=== PATIENT | female | born 1985 | race Caucasian/White ===

== ENCOUNTER → 2017-10-09 13:08 | Outpatient (REF) | payer OTHER, MEDICAID, SELFPAY | LOC: LAB 13:08 | PROVIDERS: Family Provider Family Medicine; PCP Family Medicine; Visit Provider Family Medicine | DX: Z34.00 Encounter for supervision of normal first pregnancy, unspecified trimester (principal) | CPT/HCPCS: 87081; 87147 ==

== ENCOUNTER 2017-10-30 08:12 | Outpatient (CLI) | payer OTHER, MEDICAID, SELFPAY | END 2017-10-30 08:50 | disposition home or self-care (01) | LOC: OB 10-31 06:50 → LABOR 10-31 06:50 | PROVIDERS: Family Provider Family Medicine; PCP Family Medicine; Visit Provider Family Medicine | DX: Z03.71 Encounter for suspected problem with amniotic cavity and membrane ruled out (principal); Z3A.39 39 weeks gestation of pregnancy | CPT/HCPCS: 59025; 84112; G0378; G0379 ==

== ENCOUNTER 2017-11-03 11:18 | Inpatient (IN) | payer OTHER, MEDICAID, SELFPAY ==
[2017-11-03] VITALS (7 sets, daily range): BP systolic 99–120; BP diastolic 54–79; PULSE 98–117; RESP 14–22; TEMP 36.1; O2SAT 100
[2017-11-03] MEDS: LACTATED RINGERS 1,000 ML 100 ML IV ×3 (13:15→16:58)
[2017-11-03 13:22] LABS: Add Manual Diff / Slide Review NO; Basophils Percent Auto 0.8 % (0-2); Eosinophils Percent Auto 1.3 % (2-4); Hematocrit 32.3 % (36-46); Hemoglobin 10.8 g/dL (12.0-16.0); Lymphocytes Percent Auto 23.3 % (25-40); Mean Corpuscular HGB Conc 33.3 % (30-36); Mean Corpuscular Hemoglobin 27.9 PG (26-34); Mean Corpuscular Volume 83.7 fL (80-100); Monocytes Percent Auto 7.5 % (3-14); Neutrophils Absolute Auto 7700 /uL (3000-5900); Neutrophils Percent Auto 67.1 % (50-75); Platelet Count 252 X10^3/uL (150-400); Red Blood Cell Count 3.86 X10^6/uL (4.0-5.2); Red Cell Distribution Width 14.7 % (11.6-14.8); White Blood Cell Count 11.5 X10^3/uL (4.5-11.0)
--- NOTE | 2017-11-03 16:31 | PM.OBPNLAB ---
Date/Time Date Patient Seen: 11/03/17 Time Patient Seen: 16:31 Pain Control Pain control: epidural Pelvic Exam Dilation (cm): 9 Effacement (%): 90 station: -2 Amniotic membrane status: Ruptured Contractions Contraction frequency (min): 3 Status status: Category l Monitor Accelerations: Present Assessment and Plan Assessment: active labor Comments: patient with low heart rate attempted delivery but not able. rotation and heart rate up. will rest and fluid and oxygen. reevaluate. follow up few minutes. ob and team called.
--- NOTE | 2017-11-03 16:56 | PM.OBHP.1 ---
OB HPI Date/Time Date of admission: 11/03/17 Date Patient Seen: 11/03/17 Time Patient Seen: 16:58 History of Present Illness Chief complaint: OBSERVATION : 2 Para: 1 Estimated Date of Delivery: 11/05/17 Estimated Gestational Age (weeks): 39 5/7 Narrative: Angie Ayala is a 32 year old female 39 and 5 7 weeks by good dates presents with contractions starting about 830 this morning. Increased in intensity until she came to here. She was 4 cm at that time. Non ruptured. GBS was negative. Baby looked good. Was admitted. Epidural was ordered. labs 1 hr glucose was normal. She has a positive antibody screen negative. All other labs were normal. She had sequential screen done which was normal. Had her tetanus in her flu. Past . 11/06/11 39 weeks 36 hr of labor epidural 7 lb 2 oz female Past medical history is unremarkable. went well with no complications. She had no problems. Growth has been normal. Feeling well. Evaluation Evaluation Laboratory results: Laboratory Tests 11/03/17 11/03/17 12:50 12:50 WBC 11.5 H RBC 3.86 L Hgb 10.8 L Hct 32.3 L MCV 83.7 MCH 27.9 MCHC 33.3 RDW 14.7 Plt Count 252 Neut % (Auto) 67.1 Lymph % (Auto) 23.3 L Guadalupe % (Auto) 7.5 Eos % (Auto) 1.3 L Baso % (Auto) 0.8 Neut # (Auto) 7700 H Blood Type A Positive Antibody Screen Negative Exam Narrative Exam Narrative: Alert female no acute distress lungs are clear heart regular rate and rhythm abdomen is gravid nontender small amount of bleeding. Extremities are unremarkable vaginal exam was 8 cm at my 1st presentation. 80% ruptured. Objective Labs Result Diagrams: 11/03/17 12:50 Labs: Laboratory Results - last 24 hr 11/03/17 11/03/17 12:50 12:50 WBC 11.5 H RBC 3.86 L Hgb 10.8 L Hct 32.3 L MCV 83.7 MCH 27.9 MCHC 33.3 RDW 14.7 Plt Count 252 Neut % (Auto) 67.1 Lymph % (Auto) 23.3 L Guadalupe % (Auto) 7.5 Eos % (Auto) 1.3 L Baso % (Auto) 0.8 Neut # (Auto) 7700 H Blood Type A Positive Antibody Screen Negative Assessment and Plan Plan: Plan: Admit prepare for vaginal delivery.
--- NOTE | 2017-11-03 18:22 | SUR.OPER ---
Lithotomy on padded OR bed, head on pillow, arms secured on padded arm boards at <90 degrees abduction. Legs secured in padded yellow fins stirrups.
--- NOTE | 2017-11-03 18:39 | PM.OP.1 ---
Operative Date/Time/Diagnoses - Date of procedure: 11/03/17 Time of procedure: 18:39 Pre-op diagnosis: 39 5/7 week intrauterine distress Post-op diagnosis: same Procedure & Clinicians Same procedure as scheduled: Yes Indications: Patient presented and did well up until 9 cm when she developed severe bradycardia into the 60s and 70s for 5-6 minutes. Attempted to get her to push through 9+ cm cervix was then able to do so. Attempted vacuum application without success. Baby's heart rate returned we let her rest and attempted delivery again with similar discolorations into the 60s. Attempted vacuum extraction again without success and proceeded to section Surgeon: Srinivas Collazo Compliance Technician: Maggie Fernández Anesthesia Type: Epidural Operative Notes Findings: Viable female weighing 7 lb 1.6 oz Apgars 8 and 9. Mother and infant in stable condition. Normal pelvic organs. Uterine artery bleed on the left side which was controlled otherwise unremarkable organs Closure Type: primary Implants & Drains: None Applied: catheter Estimated Blood Loss (mL): 550 Blood products transfused: none Procedure in detail: Patient had epidural done by Dr. Singleton. Excellent result. Emergent was discussed with patient and . Consent was signed. Scopes procedure was followed. Patient was taken to the operative theater and placed on the wedged position supine. Prepped and draped in the usual manner. Excellent anesthesia. Pfannenstiel incision was then made down to the muscle layer. Blunt dissection was done of the subcutaneous tissue. Sharp dissection under direct visualization of the fascia both sides. Elevated with blunt dissection and Marlyn so. This was repeated inferiorly without complications. Easily muscle layer was and peritoneum was entered without complications. Blunt dissection bladder blade was placed. Bladder flap was then elevated and incised bilaterally. Blunt dissection used to developed. Bladder blade was placed and the bladder flap. A transverse incision was then made on the uterus in the low area. Clear fluid was noted. Bluntly extended. Hand was placed and head was easily deliver. Child was crying. Cord was clamped. Since handed off to weighted laundry housekeeping aide. Cord pH was obtained. Cord blood was obtained. Placenta was delivered manually. Wet lap sponge was used to swipe the uterine contents free of products of conception x2. Uterine incision on the grass at both corners and inferior aspect. Was closed with running 0 chromic. Uterine incision was re-evaluated and about a [address] over just inferior to the incision was a bleeder which was tied with [id number]. At this point a 2nd L in the uterine artery was noted. Two [id number] 0 chromic sutures were used to close with excellent results. Number gating suture was then used without complications 0 chromic. Running. Right corner had a bleeder with [id number]-wcnys 0 chromic used to close. Irrigation was done. No bleeding was noted. Running 3 0 Vicryl was used to close the bladder flap. Peritoneum was then closed with running 2 0 Vicryl. One stool interrupted suture was used to approximate the muscle layer. Running 1 Vicryl was used to close fascia in the usual manner. Irrigation was done the scab cutaneous tissue. 330 Vicryl interrupted sutures were used to approximate the wound edge in close space. Running 4 0 Vicryl subcuticular to close wound. Steri-Strips and dressing were applied. EBL 550 cc. Mother and infant were in stable condition. Transferred to recovery. Condition: stable Disposition: Acute Care Plan for aftercare: Patient will be transferred to recovery and then to Labor and delivery for usual care.
--- NOTE | 2017-11-03 18:39 | SUR.OPER ---
heart tones 145, time 1741, 7lbs, 1 oz.
[2017-11-03] MEDS: MORPHINE 10 MG/ML INJ 2 MG IV ×2 (18:40→18:45)
--- NOTE | 2017-11-03 18:48 | P.OP_ITS ---
Operative Date/Time/Diagnoses - Date of procedure: 11/03/17 Time of procedure: 18:39 Pre-op diagnosis: 39 5/7 week intrauterine distress Post-op diagnosis: same Procedure & Clinicians Same procedure as scheduled: Yes Indications: Patient presented and did well up until 9 cm when she developed severe bradycardia into the 60s and 70s for 5-6 minutes. Attempted to get her to push through 9+ cm cervix was then able to do so. Attempted vacuum application without success. Baby's heart rate returned we let her rest and attempted delivery again with similar discolorations into the 60s. Attempted vacuum extraction again without success and proceeded to section Surgeon: Srinivas Collazo Unit Nurse: Maggie Fernández Anesthesia Type: Epidural Operative Notes Findings: Viable female weighing 7 lb 1.6 oz Apgars 8 and 9. Mother and infant in stable condition. Normal pelvic organs. Uterine artery bleed on the left side which was controlled otherwise unremarkable organs Closure Type: primary Implants & Drains: None Applied: catheter Estimated Blood Loss (mL): 550 Blood products transfused: none Procedure in detail: Patient had epidural done by Dr. Singleton. Excellent result. Emergent was discussed with patient and . Consent was signed. Scopes procedure was followed. Patient was taken to the operative theater and placed on the wedged position supine. Prepped and draped in the usual manner. Excellent anesthesia. Pfannenstiel incision was then made down to the muscle layer. Blunt dissection was done of the subcutaneous tissue. Sharp dissection under direct visualization of the fascia both sides. Elevated with blunt dissection and Marlyn so. This was repeated inferiorly without complications. Easily muscle layer was and peritoneum was entered without complications. Blunt dissection bladder blade was placed. Bladder flap was then elevated and incised bilaterally. Blunt dissection used to developed. Bladder blade was placed and the bladder flap. A transverse incision was then made on the uterus in the low area. Clear fluid was noted. Bluntly extended. Hand was placed and head was easily deliver. Child was crying. Cord was clamped. Since handed off to weighted turbine blade assembler. Cord pH was obtained. Cord blood was obtained. Placenta was delivered manually. Wet lap sponge was used to swipe the uterine contents free of products of conception x2. Uterine incision on the grass at both corners and inferior aspect. Was closed with running 0 chromic. Uterine incision was re-evaluated and about a [address] over just inferior to the incision was a bleeder which was tied with [id number]. At this point a 2nd L in the uterine artery was noted. Two ccyjns-bz-dxvay 0 chromic sutures were used to close with excellent results. Number gating suture was then used without complications 0 chromic. Running. Right corner had a bleeder with [id number] 0 chromic used to close. Irrigation was done. No bleeding was noted. Running 3 0 Vicryl was used to close the bladder flap. Peritoneum was then closed with running 2 0 Vicryl. One stool interrupted suture was used to approximate the muscle layer. Running 1 Vicryl was used to close fascia in the usual manner. Irrigation was done the scab cutaneous tissue. 330 Vicryl interrupted sutures were used to approximate the wound edge in close space. Running 4 0 Vicryl subcuticular to close wound. Steri-Strips and dressing were applied. EBL 550 cc. Mother and infant were in stable condition. Transferred to recovery. Condition: stable Disposition: Acute Care Plan for aftercare: Patient will be transferred to recovery and then to Labor and delivery for usual care.
--- NOTE | 2017-11-03 18:53 | PM.OBPNLAB ---
Date/Time Date Patient Seen: 11/03/17 Time Patient Seen: 18:53 Pain Control Comments: Patient tolerating medicine well off the dural has worked well. No complaints Pelvic Exam Dilation (cm): 9 Effacement (%): 90 station: -2 Amniotic membrane status: Ruptured Contractions Contraction frequency (min): 3 Status status: Category l Assessment and Plan Comments: Patient is now doing better heart tone seems to be improved. We have had 2 episodes now of heart rates in the 60s. Initial episode applied increased fluids oxygen and attempted pushing through a 9+ cm cervix. No real improvement. Tried several different positions until left lateral positions seem to help. Contacted Dr. Fernández and Dr. Banuelos who were gracious enough to come. Operative crew was called. Continued with oxygen. Baby seemed to recover. Seemed to be doing better with contractions. Waited approximately 15 20 min her cervix now is just a right-sided rim of cervix. Attempted pushing no real improvement VAC was applied with no success and emergent section was called out heart rate dropped into the 60s again and stayed there and so we transferred from to right and then left side. Seemed to be in excellent position. Baby's heart rate was stable then through the rest of the delivery. Discussed with both mom and dad. They understand why were doing this with going on. Dr. Fernández agrees. Will be transferred to operative delivery.
[2017-11-03] MEDS: DEXTROSE 5%-NS W/KCL 20MEQ 1,000 ML 125 MEQ IV (20:30)
[2017-11-04] MEDS: OXYCODONE/ACETAMINOPHEN 5/325 TABLET 2 TAB PO ×5 (04:28→21:01)
[2017-11-04] MEDS: LACTATED RINGERS 1,000 ML 100 ML IV (04:30)
--- NOTE | 2017-11-04 07:50 | PM.OBPN.1 ---
Subjective - OB Interval history: Patient actually feeling well. Did take a pain pill till this morning at 4. Minimal bleeding. is going well. Feeling like she wants to get up and try moving around. No other changes. baby status: doing well [place] feeding status: exclusively breast feeding Date Patient Seen: 11/04/17 Time Patient Seen: 07:51 Exam Vital Signs (past 8 hours): Oxygen Delivery Method Room Air Narrative Exam Narrative: Alert female no acute distress. Lungs are clear. Heart regular rate and rhythm. Abdomen is soft positive bowel sounds. Incision is clean and dry. Uterus is firm minimal to moderate tenderness. Extremities are normal. Objective Labs Result Diagrams: 11/03/17 12:50 Labs: Laboratory Results - last 24 hr 11/03/17 11/03/17 12:50 12:50 WBC 11.5 H RBC 3.86 L Hgb 10.8 L Hct 32.3 L MCV 83.7 MCH 27.9 MCHC 33.3 RDW 14.7 Plt Count 252 Neut % (Auto) 67.1 Lymph % (Auto) 23.3 L Person % (Auto) 7.5 Eos % (Auto) 1.3 L Baso % (Auto) 0.8 Neut # (Auto) 7700 H Blood Type A Positive Antibody Screen Negative Assessment & Plan Plan Comments: Status post day 1 doing well. Minimal bleeding. Awaiting H&H. Did have moderate bleeding during procedure. May need iron. Otherwise routine care. Follow up a.m.. Possible discharge tomorrow. Time Spent With Patient Total time spent is greater than 50% in coordination of care (as documented) at patient's floor/unit and/or counseling patient: less than 15 minutes
[2017-11-04] MEDS: IBUPROFEN 600 MG TABLET PO ×2 (10:47→17:23)
[2017-11-04 11:52] LABS: Basophils Percent Auto 0.4 % (0-2); Eosinophils Percent Auto 0.3 % (2-4); Hematocrit 24.1 % (36-46); Hemoglobin 7.9 g/dL (12.0-16.0); Lymphocytes Percent Auto 12.5 % (25-40); Mean Corpuscular HGB Conc 32.7 % (30-36); Mean Corpuscular Hemoglobin 27.6 PG (26-34); Mean Corpuscular Volume 84.4 fL (80-100); Monocytes Percent Auto 8.5 % (3-14); Neutrophils Absolute Auto 10100 /uL (3000-5900); Neutrophils Percent Auto 78.3 % (50-75); Platelet Count 207 X10^3/uL (150-400); Red Blood Cell Count 2.86 X10^6/uL (4.0-5.2); Red Cell Distribution Width 14.8 % (11.6-14.8); White Blood Cell Count 12.9 X10^3/uL (4.5-11.0)
[2017-11-04 11:55] LABS: Add Manual Diff / Slide Review NO
[2017-11-05] MEDS: IBUPROFEN 600 MG TABLET PO ×3 (00:12→17:07)
[2017-11-05] MEDS: LANOLIN OINT 7 GM 1 APPLIC TOP (00:14)
[2017-11-05] MEDS: OXYCODONE/ACETAMINOPHEN 5/325 TABLET 2 TAB PO ×4 (01:03→17:07)
--- NOTE | 2017-11-05 08:05 | P.DS_ITS ---
History of Present Illness Chief complaint: OBSERVATION Discharge Providers Date of admission: 11/03/17 11:18 Primary care physician: Srinivas Collazo MD Consults: 11/03/17 18:40 Consult to Asbestos Hazard Abatement Worker Routine Comment: Discharge provider: Srinivas Collazo MD Summary Discharge Diagnosis: 3957 week intrauterine . distress. Hospital Course: Patient was brought back from recovery. Did well. Actually was up and mobilizing on day 1. Hematocrit was 24 and iron was started. Pain was well controlled. Bleeding was minimal. Breast-feeding was going well. Was able to tolerate diet. Navarro was discontinued without complications. Patient was up on mobilizing on day 2 and was requesting to go home. Vital signs all remained stable. No other issues. Status at Discharge Cognitive/behavioral status at discharge: Stable Functional status at discharge: independent ambulation Overall status at discharge: patient is progressing back to baseline Exam Vital Signs (past 8 hours): Oxygen Delivery Method Room Air Narrative Exam Narrative: Alert feeling male smiling mildly fatigued no acute distress. Lungs are clear. Heart regular rate and rhythm. Uterus is firm. Nontender. Incision is clean and dry. Extremities without cyanosis clubbing edema. Calves are nontender. Objective Labs Result Diagrams: 11/04/17 08:50 Labs: Laboratory Results - last 24 hr 11/04/17 08:50 WBC 12.9 H RBC 2.86 L Hgb 7.9 L Hct 24.1 L MCV 84.4 MCH 27.6 MCHC 32.7 RDW 14.8 Plt Count 207 Neut % (Auto) 78.3 H Lymph % (Auto) 12.5 L Blaine % (Auto) 8.5 Eos % (Auto) 0.3 L Baso % (Auto) 0.4 Neut # (Auto) 45074 H Discharge Plan Discharge Plan Patient Disposition: Home, Self-Care Discharge comment: Patient was discharged home in stable condition. Usual education post . Patient understands. Questions answered. Follow up with me in 2 weeks. Discharge Med Rec/Prescriptions Prescriptions: New oxycodone-acetaminophen 5-325 mg Tablet 1 tab PO Q4H PRN (Reason: Pain, Moderate (4-6)) Qty: 42 RF: 0 ibuprofen 600 mg Tablet 600 mg PO Q6HR PRN (Reason: As Needed For Fever/Mild Pain) Qty: 90 RF: 1 ferrous gluconate 324 mg (38 mg iron) Tablet 324 mg PO BID Qty: 100 RF: 0 docusate sodium [Colace] 100 mg capsule 100 mg PO BID Qty: 60 RF: 1 Continue PNV #[id number] 30 mg iron-10 mg iron-1 mg Capsule 1 tab DAILY RF: 0 Discontinued zolpidem 5 mg tablet 5 mg PO PRN PRN (Reason: Insomnia) RF: 0 Follow up/Referrals: Srinivas Collazo MD [Primary Care Provider] - 11/19/17 12:00 am Provider Discharge Instructions Diet: Diet as Tolerated Activity: No lifting greater than 15 lb. No abdominal exercises. May increase activity as tolerated otherwise Wound Care Dressing: Keep dry. Other wound treatment: Keep dry do not worry about other treatment unless redness swelling or other changes Discharge Data Primary Care Provider: Srinivas Collazo Attending Provider: Srinivas Collazo Admit Date/Time: 11/03/17 11:18
[2017-11-05] MEDS: FERROUS GLUCONATE 324 MG TABLET PO (09:29)
[2017-11-05 15:46] VITALS: BP 120/62; PULSE 98; RESP 14; TEMP 36.1
== END 2017-11-05 17:00 | disposition home or self-care (01) | DRG 540 ==
PROVIDERS: Admitting Provider Family Medicine; Family Provider Family Medicine; PCP Family Medicine; Visit Provider Family Medicine
PROC: 10D00Z1 Extraction of Products of Conception, Low, Open Approach (ICD-10-PCS; CPT 59514; principal; 2017-11-03 18:15)
DX: O76 Abnormality in fetal heart rate and rhythm complicating labor and delivery (principal); Z3A.39 39 weeks gestation of pregnancy; Z37.0 Single live birth; O66.5 Attempted application of vacuum extractor and forceps
CPT/HCPCS: 01967; 36415; 59050; 59514; 85025; 86850; 86900; 86901; G0379; J2210; J2270; J2274; J2405; J2590

== ENCOUNTER → 2021-12-06 11:33 | Outpatient (CLI) | payer OTHER, MEDICAID, SELFPAY ==
--- NOTE | 2021-12-06 | DI.US.S_ITS ---
PROCEDURE: US OB LIMITED INDICATIONS: Size and Dating OUTSIDE/PRIOR DATING DATA: Last menstrual period (LMP): Unknown. LMP-based estimated date of delivery (JARETH): Not applicable. First dating scan (date and location): 12/06/2021. Estimated date of delivery (JARETH) from first dating scan: 05/05/2022. TECHNIQUE: Real-time scanning was performed of the fetus, with image documentation. Endovaginal scanning: No COMPARISON: None. FINDINGS: A single living intrauterine gestation is present. Presentation: Breech Placenta: Placental position is anterior, without previa. Amniotic fluid index: 14.3 cm, normal range is 5-24 cm. heart rate: 155 beats per minute. Maternal cervical canal: 4.8 cm long. Normal lower limit is 2.5 cm. Estimated gestational age from initial scan: 18 weeks 4 days biometrics: Biparietal diameter: 41 mm; 18 weeks 3 days Head circumference: 156 mm; 18 weeks 4 days Abdominal circumference: 133 mm; 18 weeks 5 days Femur length: 28 mm; 18 weeks 4 days Limited survey of anatomy includes normal stomach/abdomen, bilateral renal regions, and cord/cord insertion. Four-chamber heart view could not be obtained. IMPRESSION: 1. Single living intrauterine gestation. 2. Normal limited survey of anatomy. Dictated by: Albert Parisi M.D. on 12/06/2021 at 14:18 Transcribed by: KOLE on 12/06/2021 at 14:21 Approved by: Albert Parisi M.D. on 12/06/2021 at 16:49
== END ==
PROVIDERS: Family Provider Family Medicine; PCP Family Medicine; Referring Provider Family Medicine; Visit Provider Family Medicine
DX: Z36.87 Encounter for antenatal screening for uncertain dates (principal); Z3A.18 18 weeks gestation of pregnancy
CPT/HCPCS: 76815

== ENCOUNTER 2022-04-25 05:27 | Inpatient (IN) | payer OTHER, MEDICAID, SELFPAY ==
--- NOTE | 2022-04-25 05:57 | P.HPOB_ITS ---
OB HPI Date/Time Date of admission: 04/25/22 Date Patient Seen: 04/25/22 Time Patient Seen: 05:50 History of Present Condition Chief complaint: Labor : 3 Para: 2 Estimated Date of Delivery: 05/04/22 Estimated Gestational Age (weeks): 38.5 Narrative: Angie Ayala is a 36 year old female based on 18wk US. Presents for evaluation of labor with repeat scheduled in 2 days (04/27/22 @39wks). Noticed a small amount fo clear fluid leaking last night around 2200. Awoke this morning with contractions that have become increasingly more painful. Now breathing through strong contractions every 1-2 minutes. Late to care. Established care at 30 weeks with CNM and had consultation with for repeat . Partner, Dao, is present and supportive. Indications Operative indications ( section): previous uterine surgery History of Present care: good care, initiated at week # (18), number of visits (7) and pounds weight gain (7.5) Dating criteria: based on 2nd trimester US only Ultrasounds: normal mid trimester US Obstetrical complications: none Medical complications: none Preadmission Labs Blood type: A (+) positive -: Antibody screen: negative, GBS status: negative, HBsAG: negative, HIV: negative and RPR/VDLR: negative -: Chlamydia screen: not detected and Gonorrhea screen: not detected -: Rubella: immune and Varicella: immune HCT: 32 HCAB: negative 1 hr GTT: 118 Prior (ies) History: 11/06/2011: (vaginal delivery), Rachel, 39 wks 5days, 36 hr2 hr, Epidural, Intact, Female, [address], [facility] 11/03/2017: CS (), Katey, 40wks, Female, [address] [facility] Evaluation Evaluation Baseline heart rate: 130 Variability: Moderate (11-25) monitor accelerations: Present Monitor Decelerations: Absent Contraction Frequency (minutes): 1 Uterine Contraction Intensity: Strong/Firm Category of Tracing: Reactive Status: Category l Dilation (cm): 4 Effacement (%): 90 Dilation: 3-4 cm Effacement: >/=80% station: -2 Position of cervix: mid Consistency: soft Monte score: 9 PFSH Surgical History Hx of section Family History Mother Diabetes mellitus Father Hypertension Social History marital status: unmarried,living together (Fiance) number of children: 2 household members: significant other, children and other (split-level with fiance's parents upstairs) lives independently: Yes caregiver/support person: No housing: house occupational status: unemployed current occupational exposures/hazards: No Smoking Status: Never smoker alcohol intake: former substance use type: does not use Meds Home Medications and Allergies Home Medications Medication Instructions Recorded Confirmed Type ferrous sulfate 27 mg iron tablet 27 mg PO DAILY 04/25/22 04/25/22 History Allergies Allergy/AdvReac Type Severity Reaction Status Date / Time No Known Drug Allergies Allergy Verified 06/20/19 12:34 Review of Systems Review of Systems ROS: Yes All systems reviewed with the patient and are negative except as otherwise documented OB Exam Resp Effort & Inspection: normal respiratory effort and able to speak in complete sentences Auscultation: clear to auscultation bilaterally Cardio Rate: regular rate Rhythm: regular rhythm Presentation: vertex Assessment and Plan Assessment and Plan Assessment and Plan narrative: A: Term multipara Active labor Hx of (x1) Anemia Cat I FHR P: Admit, routine pre-op orders. Terbutaline now. May try NO2 for pain while awaiting anesthesia. now. KIERANM notified RN and .
[2022-04-25] MEDS: TERBUTALINE 1 MG/ML VIAL SUBCUT (06:17)
[2022-04-25 06:18] LABS: Add Manual Diff / Slide Review NO; Basophils Absolute Auto 0 /uL (0-100); Basophils Percent Auto 0.2 % (0-2); Eosinophils Absolute Auto 200 /uL (0-450); Eosinophils Percent Auto 1.7 % (2-4); Hematocrit 34.3 % (36-46); Hemoglobin 11.4 g/dL (12.0-16.0); Lymphocytes Absolute Auto 2700 /uL (1100-4500); Lymphocytes Percent Auto 27.7 % (25-40); Mean Corpuscular HGB Conc 33.1 % (30-36); Mean Corpuscular Hemoglobin 27.7 PG (26-34); Mean Corpuscular Volume 83.6 fL (80-100); Monocytes Absolute Auto 800 /uL (0-900); Monocytes Percent Auto 8.2 % (3-14); Neutrophils Absolute Auto 6100 /uL (1500-7000); Neutrophils Percent Auto 62.2 % (50-75); Platelet Count 245 X10^3/uL (150-400); White Blood Cell Count 9.8 X10^3/uL (4.5-11.0)
[2022-04-25] MEDS: CITRIC ACID/SODIUM CITRATE 15 ML SOLUTION 30 ML PO (06:24)
[2022-04-25] MEDS: CEFAZOLIN 2 GM/100 ML PREMIX 100 ML IV (06:28)
[2022-04-25 06:43] LABS: COVID19 -Nasal RAPID Negative (Negative)
--- NOTE | 2022-04-25 06:47 | SUR.OPER ---
Supine on Padded OR bed, head on pillow, safety belt at thigh, arms secured on padded arm boards at <90 degrees abduction. Bump under right buttock. Legs uncrossed with pillow under knees, gel pad to heels, tape over blanket to lower legs.
--- NOTE | 2022-04-25 07:02 | SUR.OPER ---
FHT prior to incision 125, viable baby boy at 0651, placenta delivered at 0654, 9/9, cord blood and placenta given to OB GIRISH Haro
[2022-04-25] MEDS: LACTATED RINGERS 1,000 ML 100 ML IV (07:10)
--- NOTE | 2022-04-25 07:47 | PM.PROC.1 ---
Procedures Date/Time Date of procedure: 04/25/22 Time of procedure: 06:51 General Procedure description: Information Assistant Documentation I assisted the OB digital production artist in the section for this patient. My responsibilities included retracting and suctioning, providing fundal pressure during delivery and following with suture during closure. Please see the OB's note for details of the surgery.
[2022-04-25 07:54] VITALS: BP 155/55; PULSE 58; RESP 14; O2SAT 98
[2022-04-25 07:56] VITALS: BP 139/91; PULSE 55; RESP 16; TEMP 36.5; O2SAT 99
--- NOTE | 2022-04-25 07:56 | PM.PREOP ---
Pre-operative Note COVID-19 COVID-19 status: Negative Interval Note History & Physical reviewed/Exam performed by Physician: Yes Changes to H&P: No
--- NOTE | 2022-04-25 07:56 | PM.OBCS.1 ---
Operative Date/Time/Diagnoses Date of procedure: 04/25/22 Time of procedure: 06:40 Pre-op diagnosis: 38w5d gestation GBS negative Rh positive Hx of prior Post-op diagnosis: same Procedure & Clinicians Procedure: Repeat Same procedure as scheduled: Yes Indications: Hx of prior Active labor Surgeon: Sapphire Portillo Click Yes if Unassisted: No Regional Safety Manager: Ariadna Gutierrez Anesthesia Type: Spinal Operative Notes Findings: Normal uterus, ovaries, and tube Closure Type: primary Specimen(s): cord blood Intraoperative meds administered: Duramorph, Ketorolac and Pitocin Applied: Catheter Estimated Blood Loss (mL): 650 Blood products transfused: none Procedure in detail: OPERATIVE COURSE: The patient was taken to the operating room where spinal anesthesia was placed. She was then prepared and draped in the normal sterile fashion in the dorsal supine position with a leftward tilt. Anesthesia was tested and found to be adequate. A Pfannensteil skin incision was then made with the scalpel and carried through to the underlying layer of fascia with the scalpel. The fascia was incised in the midline and the incision extended laterally with the Fenton scissors. The superior aspect of the fascial incision was then grasped with Elvia clamps, elevated with the help of the automobile mechanic assistant, and the underlying rectus muscles dissected off bluntly and sharply where needed. Attention was then turned to the inferior aspect of the incision which, in a similar fashion, was grasped, tented up with Elvia clamps, and the rectus muscle dissected off bluntly. The rectus muscles were then in the midline, and the peritoneum was identified and entered bluntly. The peritoneal incision was then extended with good visualization of the bladder. Retraction was provided by the automobile mechanic assistant. The bladder blade was then inserted and the vesicouterine peritoneum identified, grasped with pick-ups and entered sharply with the Metzenbaum scissors. The incision was then extended laterally and the bladder flap created digitally. The bladder blade was then reinserted and the lower uterine segment incised in a transverse fashion with the scalpel, with the automobile mechanic assistant providing suction. The uterine incision was then extended superolaterally by pulling superolaterally on both sides. Membranes were ruptured and fluid was clear. The bladder blade was removed the infant's head was flexed out of OA position and delivered atraumatically, with fundal pressure by the automobile mechanic assistant. The nose and mouth were suctioned with bulb suction and the cord was clamped and cut after 1 minute. The was handed off to the waiting nursing staff. Cord blood was collected for Rh status. The placenta was then delivered with gentle cord traction. The uterus was then exteriorized and cleared of all clots and debris. The uterine incision was repaired with O-Vicryl in a running, locked fashion. A second layer of the same suture was used for imbrication. Arterial bleeding was noted on the right aspect of the incision. Multiple vquxio-ck-aegkeo with O-Vicryl were used to ultimately obtain hemostasis. The uterus was returned to the abdomen. The gutters were cleared of all clots. Hysterotomy was investigated and found to be hemostatic. The peritoneum was closed with 3-O Vicryl. The fascia was reapproximated with O-Vicryl in a running fashion. The subcutaneous tissue was reapproximated with 3-O Vicryl. The skin was closed with 4-O Vicryl. The automobile mechanic assistant helped with retraction during closures. SPONGE AND NEEDLE COUNTS: Correct x3. DRESSING: Aquacel ANTICOAGULATION: SCDs applied prior to Surgery Preop antibiotics given (see MAR). The patient was taken to recovery room having tolerated procedure well. Complications: none Baby 1: Gender: Male Presentation: vertex Position: Left Occiput Anterior Placental Delivery Description: Spontaneous Cord Vessel Description: 3 Vessels and Nuchal Cord score (1 min): 8 score (5 min): 9 weight: 7 lb 7.014 oz Post-operative Condition: stable Disposition: PACU Aftercare: routine postop
[2022-04-25 07:58] VITALS: BP 114/70; PULSE 64; RESP 12; O2SAT 100
[2022-04-25 08:03] VITALS: BP 122/84; PULSE 88; RESP 17; TEMP 36.4; O2SAT 98
[2022-04-25 08:06] VITALS: BP 119/71; PULSE 83; RESP 16; TEMP 36.7
--- NOTE | 2022-04-25 08:15 | SUR.PHASEI ---
Pt transferred to in bed by this RN. Pt awake, alert. SBAR report to Carolina RN with fundal check and jamal pad check at bedside with Carolina.
[2022-04-25] MEDS: NALBUPHINE 20 MG/ML AMPUL 5 MG IV (09:37)
[2022-04-25] MEDS: KETOROLAC 30 MG/ML VIAL IV ×2 (14:46→20:50)
[2022-04-26] MEDS: KETOROLAC 30 MG/ML VIAL IV ×2 (02:00→03:06)
[2022-04-26 06:34] LABS: Add Manual Diff / Slide Review NO; Basophils Absolute Auto 0 /uL (0-100); Basophils Percent Auto 0.2 % (0-2); Eosinophils Absolute Auto 100 /uL (0-450); Eosinophils Percent Auto 0.7 % (2-4); Hematocrit 24.2 % (36-46); Lymphocytes Absolute Auto 1500 /uL (1100-4500); Lymphocytes Percent Auto 13.2 % (25-40); Mean Corpuscular HGB Conc 32.9 % (30-36); Mean Corpuscular Hemoglobin 27.9 PG (26-34); Mean Corpuscular Volume 84.8 fL (80-100); Monocytes Absolute Auto 700 /uL (0-900); Monocytes Percent Auto 6.4 % (3-14); Neutrophils Absolute Auto 9000 /uL (1500-7000); Neutrophils Percent Auto 79.5 % (50-75); Platelet Count 175 X10^3/uL (150-400); Red Blood Cell Count 2.86 X10^6/uL (4.0-5.2); Red Cell Distribution Width 14.6 % (11.6-14.8); White Blood Cell Count 11.3 X10^3/uL (4.5-11.0)
[2022-04-26] MEDS: DOCUSATE 100 MG CAPSULE 200 MG PO (09:25)
[2022-04-26] MEDS: ACETAMINOPHEN 325 MG TABLET 650 MG PO (09:25)
[2022-04-26] MEDS: PRENATAL VIT,CALC/IRON/FOLIC 1 TABLET 1 TAB PO (09:25)
[2022-04-26] MEDS: IBUPROFEN 600 MG TABLET PO (09:26)
--- NOTE | 2022-04-26 10:53 | PM.OBDS.1 ---
Discharge Providers Provider Date of admission: 04/25/22 05:27 Discharge Date: 04/26/22 Primary care physician: Srinivas Collazo MD Consults: 04/25/22 08:06 Consult to Cmo Routine Comment: Discharge provider: Ariadna Gutierrez CNM Summary Hospital Course Date Patient Seen: 04/26/22 Time Patient Seen: 10:53 Diagnoses: Repeat , anemia secondary to blood loss Hospital Course: PPD1: Stable s/p repeat . Voiding, ambulating and independently. Tolerating a general diet. Pain is well controlled with PO medication. Vaginal bleeding is light, without clots. is going well. Abdominal incision dressing is in place with no concerns. Partner is present and supportive. Both Angie and her partner are eager for discharge to home today. Peripartum Data Delivery Method: Section Laceration Description: None Episiotomy description: None Procedures: repeat complications: none 1: Gender: Male Disposition of : home Discharge Diagnosis (1) Status post repeat low transverse section: Start Date: 04/25/22 Status: Acute Problem Details: Routine post-op course (2) Anemia complicating puerperium: Start Date: 04/25/22 Status: Acute Problem Details: Anemia in with normal blood loss during resulted in hemodynamically stable anemia that would benefit from IV iron prior to discharge Status at Discharge Cognitive/behavioral status at discharge: oriented and calm Functional status at discharge: independent ambulation Overall status at discharge: patient is progressing back to baseline Time Spent with Patient Time attestation: Total time spent providing and/or coordinating discharge services: Time spent: Less than 30 minutes Objective Labs Result Diagrams: 04/26/22 06:00 Labs: Laboratory Results - last 24 hr 04/26/22 06:00 WBC 11.3 H RBC 2.86 L Hgb 8.0 L Hct 24.2 L MCV 84.8 MCH 27.9 MCHC 32.9 RDW 14.6 Plt Count 175 Neut % (Auto) 79.5 H Lymph % (Auto) 13.2 L Morgan % (Auto) 6.4 Eos % (Auto) 0.7 L Baso % (Auto) 0.2 Neut # (Auto) 9000 H Lymph # (Auto) 1500 Morgan # (Auto) 700 Eos # (Auto) 100 Baso # (Auto) 0 Exam Vital Signs (past 8 hours): Oxygen Delivery Method Room Air BP 119/71mmHg, HR 83bpm, RR 16/min, T 98.0F Temporal Other: Fundus firm @ u-1, lochia scant Skin Other: low transverse abdominal incision Aquacel dressing is securely in place with scant drainage noted and unchanged x1 day Discharge Plan Discharge Plan Patient Disposition: Home Provider Discharge Comment: after IV Fe Discharge orders & Medications Prescriptions: New ibuprofen 600 mg Tablet 600 mg PO Q6H PRN (Reason: Fever/Mild Pain (1-3)) 14 Days Qty: 60 1RF oxycodone 5 mg Tablet 5 mg PO Q4H PRN (Reason: Pain, Moderate (4-6)) 7 Days Qty: 12 0RF ferrous sulfate 324 mg (65 mg iron) tablet,delayed release (DR/EC) 324 mg PO DAILY 60 Days Qty: 60 0RF Discontinued ferrous sulfate 27 mg iron Tablet 27 mg PO DAILY Follow up/Referrals: Ariadna Gutierrez CNM [[facility] [employer]] - (Incision check on 05/02/2022 @ 1:45pm appointment on 05/29/2022 with Ariadna Gutierrez) Srinivas Collazo MD [Primary Care Provider] - Diet/Activity/Treatments Activity: pelvic rest x 6 weeks. no heavy lifting x 4 weeks, no driving x 2 weeks Skin/Wound/Dressing Care Report to your healthcare provider any signs of infection, such as:: chills, fever, increased pain, unusual drainage and unusual redness Visit Report/Discharge Packet Instructions: DI for Depression Discharge Data Primary Care Provider: Srinivas Collazo
[2022-04-26] MEDS: IRON SUCROSE 200 MG in SODIUM CHLORIDE 0.9% 100 ML 220 MG IV (11:48)
[2022-04-26] MEDS: MEASLES,MUMPS,RUBELLA VACC/PF 0.5 ML VIAL SUBCUT (13:26)
== END 2022-04-26 13:34 | disposition home or self-care (01) | DRG 540 ==
PROVIDERS: Family Medicine; Admitting Provider Nurse Practitioner Obstetrics & Gynecology; Family Provider Family Medicine; PCP Family Medicine; Referring Provider Nurse Practitioner Obstetrics & Gynecology; Visit Provider Nurse Practitioner Obstetrics & Gynecology
PROC: 10D00Z1 Extraction of Products of Conception, Low, Open Approach (ICD-10-PCS; CPT 59514; principal; 2022-04-25 07:30)
DX: O34.211 Maternal care for low transverse scar from previous cesarean delivery (principal); Z3A.38 38 weeks gestation of pregnancy; Z37.0 Single live birth; O90.81 Anemia of the puerperium; D62 Acute posthemorrhagic anemia; Z20.822 Contact with and (suspected) exposure to COVID-19
CPT/HCPCS: 36415; 59050; 59514; 85025; 86850; 86900; 86901; 87635; 96360; 96372; C9803; G0379; J0690; J1756; J1885; J2250; J2274; J2300; J2405; J2590; J2704